=== PATIENT | male | born 1960 | race Caucasian/White ===

== ENCOUNTER → 2016-10-30 | Outpatient (CLI) | payer OTHER ==
[~2016-10-30] MED LIST: FLEXERIL; LORTAB 5/500 501 TAB PO
== END ==
LOC: MHCPAIN 08:44
DX: G89.29 Other chronic pain (principal); M47.817 Spondylosis without myelopathy or radiculopathy, lumbosacral region; M54.16 Radiculopathy, lumbar region; M53.3 Sacrococcygeal disorders, not elsewhere classified; F17.220 Nicotine dependence, chewing tobacco, uncomplicated
CPT/HCPCS: G0463

== ENCOUNTER → 2016-11-05 | Outpatient (CLI) | payer OTHER | LOC: MHCPAIN 10:24 | DX: M47.27 Other spondylosis with radiculopathy, lumbosacral region (principal); M48.06 Spinal stenosis, lumbar region | CPT/HCPCS: J1100; Q9967 ==

== ENCOUNTER → 2016-11-24 | Outpatient (CLI) | payer OTHER | LOC: MHCPAIN 15:43 | DX: G89.29 Other chronic pain (principal); M47.817 Spondylosis without myelopathy or radiculopathy, lumbosacral region; M54.16 Radiculopathy, lumbar region | CPT/HCPCS: G0463 ==

== ENCOUNTER → 2016-12-03 | Outpatient (CLI) | payer OTHER | LOC: MHCPAIN 08:26 | DX: M47.27 Other spondylosis with radiculopathy, lumbosacral region (principal); M48.061 Spinal stenosis, lumbar region without neurogenic claudication | CPT/HCPCS: J1100; Q9967 ==

== ENCOUNTER → 2017-01-05 | Outpatient (CLI) | payer OTHER | LOC: MHCPAIN 15:27 | DX: G89.29 Other chronic pain (principal); M47.27 Other spondylosis with radiculopathy, lumbosacral region; M48.061 Spinal stenosis, lumbar region without neurogenic claudication; Z87.891 Personal history of nicotine dependence | CPT/HCPCS: G0463 ==

== ENCOUNTER → 2017-04-07 | Outpatient (CLI) | payer OTHER | LOC: MHCPAIN 08:50 | DX: G89.29 Other chronic pain (principal); M47.27 Other spondylosis with radiculopathy, lumbosacral region; M48.061 Spinal stenosis, lumbar region without neurogenic claudication; Z87.891 Personal history of nicotine dependence | CPT/HCPCS: G0463 ==

== ENCOUNTER → 2017-09-10 | Outpatient (CLI) | payer OTHER | LOC: MHCPAIN 09:16 | DX: G89.29 Other chronic pain (principal); M47.817 Spondylosis without myelopathy or radiculopathy, lumbosacral region; M54.16 Radiculopathy, lumbar region; M53.3 Sacrococcygeal disorders, not elsewhere classified; M48.061 Spinal stenosis, lumbar region without neurogenic claudication | CPT/HCPCS: G0463 ==

== ENCOUNTER 2023-11-25 16:25 | Outpatient (RCR) | payer OTHER | END 2023-11-29 | disposition home or self-care (01) | LOC: COL.CR | DX: Z02.89 Encounter for other administrative examinations (principal) | CPT/HCPCS: G0237; G0239 ==

== ENCOUNTER → 2023-12-30 | Outpatient (RCR) | payer OTHER | END | disposition home or self-care (01) | LOC: COL.CR | DX: Z02.89 Encounter for other administrative examinations (principal) | CPT/HCPCS: G0239 ==